=== PATIENT | female | born 1950 | race Caucasian/White ===

== ENCOUNTER → 2016-08-10 | Outpatient (CLI) | payer OTHER | LOC: BHFA 11:30 | PROVIDERS: ATTEND Internal Medicine Cardiovascular Disease | DX: R07.9 Chest pain, unspecified (principal) ==

== ENCOUNTER → 2017-02-06 | Outpatient (CLI) | payer OTHER | LOC: BMCIMAGING 14:45 | PROVIDERS: ATTEND Internal Medicine | DX: Z12.31 Encounter for screening mammogram for malignant neoplasm of breast (principal) | CPT/HCPCS: G0202 ==

== ENCOUNTER 2017-06-01 21:06 | Observation (INO) | payer OTHER ==
--- NOTE | 2017-06-01 21:22 | CPEKG ---
Heart Rate: 62 RR Interval: 968 P-R Interval: 188 QRSD Interval: 96 QT Interval: 432 QTC Interval: 439 P [place]: 15 QRS [place]: 66 T Wave [place]: 77 EKG Severity - ABNORMAL ECG - EKG Impression: SINUS ARRHYTHMIA, RATE 52-71 EKG Impression: PROBABLE LEFT ATRIAL ABNORMALITY EKG Impression: REPOL ABNRM, PROBABLE ISCHEMIA, ANT-LAT LEADS Electronically Signed By: Jamey Stafford 01-Jun-2017 22:02:59
[2017-06-01 21:33] LABS: PLATELET COUNT 209 10^3/uL (150-400)
[2017-06-01] MEDS ORDERED: ACETAMINOPHEN 325 MG TAB PO PRN (22:10)
[2017-06-01] MEDS ORDERED: ONDANSETRON DISINTEGRATING 4 MG TAB PO PRN (22:10)
[2017-06-01] MEDS ORDERED: ONDANSETRON 4 MG/2 ML VIAL IVP PRN (22:10)
--- NOTE | 2017-06-01 22:11 | EDPHY ---
H & P Stated Complaint: c/o bilat cp lasting for approx 10 mins, no sob Time Seen by Provider: 06/01/17 21:52 HPI/ROS: Chief Complaint: Chest pain HPI: 67-year-old woman with a history of coronary artery disease status post [place] and CABG in 1999. Patient has a concert this evening when she had sudden onset of tightness in the center of her chest radiating to her neck. At worst is about a 9/10. Currently is a 3/10. The EMS was called. She was given 325 mg of aspirin orally. Pain now is 3/10. Last x-ray chest pain was in the fall. Last stress test was in the last 2 years. No recent illness. No fevers or chills. No nausea or vomiting. No shortness of breath. There are no aggravating or alleviating factors. ROS: 10 point Review of Systems is negative except as noted in the HPI. PMH: Coronary artery disease Social History: No smoking, no alcohol, no recreational drug use Family History: non-contributory Physical Exam: Gen: Awake, Alert, No Distress HEENT: Nose: no rhinorrhea Eyes: PERRLA, EOMI Mouth: Moist mucosa Neck: Supple, no JVD Chest: nontender, lungs clear to auscultation Heart: S1, S2 normal, no murmur Abd: Soft, non-tender, no guarding Back: no CVA tenderness, no midline tenderness Ext: no edema, non-tender Skin: no rash Neuro: CN II-XII intact, Sensation grossly intact, Strength 5/5 in bilateral upper and lower extremities - Personal History Tetanus Vaccine Date: < 10 years - Medical/Surgical History Hx Asthma: No Hx Chronic Respiratory Disease: No Hx Diabetes: No Hx Cardiac Disease: Yes Hx Renal Disease: No Hx Cirrhosis: No Hx Alcoholism: No Hx HIV/AIDS: No Hx Splenectomy or Spleen Trauma: No Other PMH: cabg 1999 , hypertension, hyperlipidema, gerd, right acl x2, R knee replacement - Social History Smoking Status: Former smoker Constitutional: Initial Vital Signs Temperature (C) 37 C 06/01/17 21:13 Heart Rate 72 06/01/17 21:13 Respiratory Rate 14 06/01/17 21:13 Blood Pressure 173/99 H 06/01/17 21:13 O2 Sat (%) 96 06/01/17 21:13 O2 Delivery Mode Room Air Allergies/Adverse Reactions: erythromycin base [Erythromycin Base] Allergy (Unknown, Verified 06/01/17 21:19) Other-Enter Comments Penicillins Allergy (Unknown, Verified 06/01/17 21:19) Rash Home Medications: Medication Instructions Recorded Aspirin [Aspirin 81mg] 81 mg PO HS 05/15/11 Niacin ER [Niaspan] 500 mg PO HS 05/15/11 Atorvastatin Calcium [Lipitor 10 10 mg PO HS 09/07/13 mg (*)] Calcium Carbonate/Vitamin D3 1 each PO BID 09/07/13 [Calcium 500 + Vit D Caplet] Lisinopril [Zestril 5 mg (RX)] 5 mg PO HS 09/07/13 Multivitamins [Tab-A-Elizabeth] 1 each PO DAILY 09/07/13 [place]-3 Fatty Acids/Fish Oil 1 each PO DAILY 09/07/13 [[place] 3 1,000 mg Softgel] Medical Decision Making - Diagnostics EKG Interpretation: ECG time 9:15 p.m., sinus rhythm with a rate of 62, normal axis, she has significant T-wave inversions V1 through V3. These are unchanged from ECG of 2012 but are a bit more pronounced. Imaging Results: Imaging Impressions Chest X-Ray 06/01/17 21:23 Impression: Sequela of prior CABG, with no evidence of congestive heart failure. Imaging: I viewed and interpreted images myself ED Course/Re-evaluation: 67-year-old woman history of coronary artery disease with the sudden onset of chest pressure this morning. ECG shows no acute changes. Troponin is negative. Given her significant history and concerning story she will be admitted for cardiac rule out. I have discussed with Dr. Buchanan. Patient has received aspirin. Will give her nitrates here. Admitted to the PCU. - Data Points Laboratory Results: Laboratory Results 06/01/17 21:10 06/01/17 21:10 06/01/17 06/01/17 06/01/17 21:10 21:10 21:10 WBC 15.60 10^3/uL H 10^3/uL (3.80-9.50) RBC 4.51 10^6/uL 10^6/uL (4.18-5.33) Hgb 14.4 g/dL g/dL (12.6-16.3) Hct 43.0 % % (38.0-47.0) MCV 95.3 fL fL (81.5-99.8) MCH 31.9 pg pg (27.9-34.1) MCHC 33.5 g/dL g/dL (32.4-36.7) RDW 14.9 % % (11.5-15.2) Plt Count 209 10^3/uL 10^3/uL (150-400) MPV 9.5 fL fL (8.7-11.7) Neut % (Auto) 77.4 % H % (39.3-74.2) Lymph % (Auto) 13.8 % L % (15.0-45.0) [place] % (Auto) 7.9 % % (4.5-13.0) Eos % (Auto) 0.1 % L % (0.6-7.6) Baso % (Auto) 0.2 % L % (0.3-1.7) Nucleat RBC Rel Count 0.0 % % (0.0-0.2) Absolute Neuts (auto) 12.07 10^3/uL H 10^3/uL (1.70-6.50) Absolute Lymphs (auto) 2.16 10^3/uL 10^3/uL (1.00-3.00) Absolute Monos (auto) 1.24 10^3/uL H 10^3/uL (0.30-0.80) Absolute Eos (auto) 0.01 10^3/uL L 10^3/uL (0.03-0.40) Absolute Basos (auto) 0.03 10^3/uL 10^3/uL (0.02-0.10) Absolute Nucleated RBC 0.00 10^3/uL 10^3/uL (0-0.01) Immature Gran % 0.6 % % (0.0-1.1) Immature Gran # 0.09 10^3/uL 10^3/uL (0.00-0.10) D-Dimer < 0.27 ug/mLFEU ug/mLFEU (0.00-0.50) Sodium 138 mEq/L mEq/L (135-145) Potassium 4.0 mEq/L mEq/L (3.5-5.2) Chloride 99 mEq/L mEq/L (97-110) Carbon Dioxide 26 mEq/l mEq/l (22-31) Anion Gap 13 mEq/L mEq/L (8-16) BUN 19 mg/dL mg/dL (7-23) Creatinine 0.6 mg/dL mg/dL (0.6-1.0) Estimated GFR > 60 Glucose 133 mg/dL H mg/dL (70-100) Calcium 9.7 mg/dL mg/dL (8.5-10.4) Troponin I < 0.012 ng/mL ng/mL (0.000-0.034) NT-Pro-B Natriuret Pep 110 pg/mL pg/mL (0-125) Departure - Departure Disposition: [facility] Inpatient Acute Clinical Impression: Chest pain Condition: Fair Referrals: Delores Prince MD [Primary Care Provider] - As per Instructions
[2017-06-02] MEDS ORDERED: LORazepam 0.5 MG TAB PO ONE (00:12)
--- NOTE | 2017-06-02 00:56 | PDGENHP ---
History and Physical - Chief Complaint Chest pain - History of Present Illness 67 yo F w/ hx of CAD s/p CABG in 1999 presents with chest pain. Patient exercised vigorously earlier today attending a 1 hour cycling class and then hiking 4 miles. She had no chest pain during these activities. Then tonight during a concert around 8 PM she experienced an episode of sudden onset central chest pain with radiation to her neck. This lasted 15-20 minutes and she is currently chest pain free. Of note, she had a stress echo in July of 2016 that was unremarkable. History Information - Allergies/Home Medication List Allergies/Adverse Reactions: erythromycin base [Erythromycin Base] Allergy (Unknown, Verified 06/01/17 21:19) Other-Enter Comments Penicillins Allergy (Unknown, Verified 06/01/17 21:19) Rash Home Medications: Niacin ER [Niaspan] 500 mg PO HS 05/15/11 [Last Taken 05/31/17] Calcium Carbonate/Vitamin D3 [Calcium 500 + Vit D Caplet] 1 each PO BID [Last Taken 06/01/17] Lisinopril [Zestril 5 mg (RX)] 5 mg PO HS 09/07/13 [Last Taken 05/31/17] Multivitamins [Tab-A-Elizabeth] 1 each PO DAILY 09/07/13 [Last Taken 06/01/17] [place]-3 Fatty Acids/Fish Oil [[place] 3 1,000 mg Softgel] 1 each PO DAILY [Last Taken 06/01/17] Atorvastatin Calcium 80 mg PO HS 06/01/17 [Last Taken 05/31/17] Carboxymethylcellulose 1% [Refresh Celluvisc (*)] 1 drop EACHEYE PRN PRN [Last Taken 06/01/17] Herbals/Supplements -Info Only 1 ea PO DAILY 06/01/17 [Last Taken 06/01/17] I have personally reviewed and updated: medical history - Past Medical History coronary artery disease - Surgical History Reports: coronary bypass surgery - Family History Positive for: CAD, father with history of CAD younger than 55 - Social History Smoking Status: Former smoker Review of Systems Review of Systems: ROS: 10pt was reviewed & negative except for what was stated in HPI & below Physical Exam Physical Exam: Temp Pulse Resp BP Pulse Ox 36.8 C 71 16 150/96 H 94 06/01/17 23:28 06/01/17 23:28 06/01/17 23:28 06/01/17 23:28 06/01/17 23:28 Constitutional: no apparent distress, not in pain Eyes: PERRL, EOMI Ears, Nose, Mouth, Throat: moist mucous membranes, no oral mucosal ulcers Cardiovascular: regular rate and rhythym, no murmur, rub, or gallop Respiratory: no respiratory distress, clear to auscultation Gastrointestinal: normoactive bowel sounds, soft, non-tender abdomen Skin: warm, normal color Musculoskeletal: full muscle strength, no muscle tenderness Neurologic: AAOx3, CN II-XII Intact Psychiatric: interacting appropriately, not anxious Lab Data & Imaging Review 06/01/17 21:10 06/01/17 21:10 WBC 15.60 10^3/uL (3.80-9.50) H 06/01/17 21:10 RBC 4.51 10^6/uL (4.18-5.33) 06/01/17 21:10 Hgb 14.4 g/dL (12.6-16.3) 06/01/17 21:10 Hct 43.0 % (38.0-47.0) 06/01/17 21:10 MCV 95.3 fL (81.5-99.8) 06/01/17 21:10 MCH 31.9 pg (27.9-34.1) 06/01/17 21:10 MCHC 33.5 g/dL (32.4-36.7) 06/01/17 21:10 RDW 14.9 % (11.5-15.2) 06/01/17 21:10 Plt Count 209 10^3/uL (150-400) 06/01/17 21:10 MPV 9.5 fL (8.7-11.7) 06/01/17 21:10 Neut % (Auto) 77.4 % (39.3-74.2) H 06/01/17 21:10 Lymph % (Auto) 13.8 % (15.0-45.0) L 06/01/17 21:10 [place] % (Auto) 7.9 % (4.5-13.0) 06/01/17 21:10 Eos % (Auto) 0.1 % (0.6-7.6) L 06/01/17 21:10 Baso % (Auto) 0.2 % (0.3-1.7) L 06/01/17 21:10 Nucleat RBC Rel Count 0.0 % (0.0-0.2) 06/01/17 21:10 Absolute Neuts (auto) 12.07 10^3/uL (1.70-6.50) H 06/01/17 21:10 Absolute Lymphs (auto) 2.16 10^3/uL (1.00-3.00) 06/01/17 21:10 Absolute Monos (auto) 1.24 10^3/uL (0.30-0.80) H 06/01/17 21:10 Absolute Eos (auto) 0.01 10^3/uL (0.03-0.40) L 06/01/17 21:10 Absolute Basos (auto) 0.03 10^3/uL (0.02-0.10) 06/01/17 21:10 Absolute Nucleated RBC 0.00 10^3/uL (0-0.01) 06/01/17 21:10 Immature Gran % 0.6 % (0.0-1.1) 06/01/17 21:10 Immature Gran # 0.09 10^3/uL (0.00-0.10) 06/01/17 21:10 D-Dimer < 0.27 ug/mLFEU (0.00-0.50) 06/01/17 21:10 Sodium 138 mEq/L (135-145) 06/01/17 21:10 Potassium 4.0 mEq/L (3.5-5.2) 06/01/17 21:10 Chloride 99 mEq/L (97-110) 06/01/17 21:10 Carbon Dioxide 26 mEq/l (22-31) 06/01/17 21:10 Anion Gap 13 mEq/L (8-16) 06/01/17 21:10 BUN 19 mg/dL (7-23) 06/01/17 21:10 Creatinine 0.6 mg/dL (0.6-1.0) 06/01/17 21:10 Estimated GFR > 60 06/01/17 21:10 Glucose 133 mg/dL (70-100) H 06/01/17 21:10 Calcium 9.7 mg/dL (8.5-10.4) 06/01/17 21:10 Troponin I < 0.012 ng/mL (0.000-0.034) 06/01/17 21:10 NT-Pro-B Natriuret Pep 110 pg/mL (0-125) 06/01/17 21:10 Imaging Review: Imaging Impressions Chest X-Ray 06/01/17 21:23 Impression: Sequela of prior CABG, with no evidence of congestive heart failure. Assessment & Plan Assessment: 67 yo F w/ hx of CAD s/p CABG presents with chest pain. Plan: 1. Chest pain - Occurred at rest and lasted about 15-20 minutes. Patient exercised vigorously earlier in the day without symptoms. Initial work-up in the ED negative. She had a stress echo in July of 2016 with mild hypokinesis in septal region, which was consistent with prior, known disease. - Admit to PCU for observation - Monitor on telemetry, trend cardiac enzymes - Will consult cardiology regarding next steps per patient request 2. Hx CAD - S/p CABG in 1999; she has significant family hx of early CAD. She has done well since with no subsequent cardiac episodes. She is compliant with home medications. 3. Leukocytosis - WBC 15,000 on admission with unclear etiology. Patient denies any symptoms of infection. Monitor CBC. Diet - NPO pending cardiology consult Ppx - LMWH Code - Full Dispo - Admit to PCU under observation status
[2017-06-02 04:31] LABS: PLATELET COUNT 179 10^3/uL (150-400)
[2017-06-02 07:49] VITALS: O2SAT 92
[2017-06-02] MEDS ORDERED: ENOXAPARIN 40 MG/0.4 ML SYR SC SCH (09:00)
[2017-06-02 11:54] VITALS: BP 110/66; PULSE 62; RESP 17; TEMP 98.2
--- NOTE | 2017-06-02 14:11 | GDS ---
[f rep st] DISCHARGE SUMMARY DIAGNOSES: 1. Chest pain. 2. Coronary artery disease status post previous CABG. HISTORY: The patient is a 67-year-old female with coronary disease, status post CABG in 1999, claire fontaine with recurrence of chest pain. She is very active at baseline and had taken a 1-hour cycling cl ass, as well as hiked 4 miles without chest pain on the day prior to admission. She went to a [employer] that evening at 8 p.m. and, during the concert, had an episode of sudden onset central chest pain t hat radiated to her neck that lasted 20 minutes. It has not recurred. She had a negative stress ech o in July 2016. She was admitted to the hospital under observation, and serial troponins and EKGs wer e unremarkable. She was seen by Dr. Grubbs, who is data management consultant for Dr. Lazaro. He is recommending disch arge from the hospital and followup with Dr. Lazaro within 1 week for outpatient stress testing. DISCHARGE MEDICATIONS: Please see computer record for full detailed list. New medications: Nitrogl ycerin 0.4 mg sublingual q.5 minutes as needed. ADDITIONAL DISCHARGE INSTRUCTIONS: Follow up with Dr. Jamir Lazaro for outpatient stress testing within 1 week. Patient seen and examined by me on the day of discharge. /[id number]/MODL
--- NOTE | 2017-06-02 14:12 | ASMTLACE ---
LACE Length of stay for Answers: Less than 1 day current admission Acuity / Level of Answers: No Care: Did the patient have an inpatient admission? Comorbidities - select Answers: Coronary Atery Disease all that apply Previous myocardial infarction # of Emergency department Answers: 1-2 visits in the last 6 months Score: 4 Date Signed: 06/02/2017 02:12 PM Electronically Signed By:Yolie Maradiaga LCSW
[2017-06-02] MEDS ORDERED: LISINOPRIL 5 MG TAB PO SCH (21:00)
[2017-06-02] MEDS ORDERED: NIACIN ER 500 MG TAB.ER PO SCH (21:00)
--- NOTE | 2017-06-03 00:33 | GCON ---
[f rep st] CONSULTATION CARDIOLOGY CONSULTATION DATE OF CONSULTATION: 06/02/2017 REFERRING PHYSICIAN: Miladys Villasenor MD INDICATION FOR CONSULT: Chest pain and known history of coronary artery disease. HISTORY OF PRESENT ILLNESS: The patient is a pleasant 67-year-old female with a known history of coronary artery disease, status post myocardial infarction, with history of PCI followed by CABG in 1999, who was in her usual state of health yesterday. She states that she was able to do an hour-long cycling class yesterday and also went for 4-mile hike without any cardiac complaints. She states that last evening she went to a [facility] and had an acute onset of substernal chest pain that she describes as originating in her epigastrium and radiating up across her chest and up into her neck and jaw. She states that at the peak, her chest discomfort was an 8/10. She had no associated nausea, vomiting, or diaphoresis. No associated shortness of breath or dyspnea. She states these symptoms lasted for approximately 15 to 20 minutes and resolve spontaneously. She was brought to the emergency room for further evaluation. Initial ECG demonstrated normal sinus rhythm with T wave inversions in leads V1 through V4. This is essentially unchanged compared to previous ECG from May 2011. Initial troponin was unremarkable. She was admitted for observation. The patient had no further episodes of chest discomfort during hospitalization. She has remained hemodynamically stable. There have been no events on telemetry. She denies any complaints of shortness of breath, dyspnea, PND, orthopnea, or lower extremity edema. She denies any recent complaints of palpitations, dizziness, lightheadedness, near-syncope, or syncope. She has no complaints of exertional intolerance or fatigue. The patient states that she has occasionally had episodes of chest discomfort like which she experienced last evening. However, it has been several years since she has had these symptoms. Of note, she was hospitalized last July 2016 at [facility] for an episode of atypical chest discomfort. She was discharged from that hospitalization without admission. She subsequently underwent an exercise stress echocardiogram in July 2016 at [facility] which was low risk with no evidence of ischemic changes. She remains on excellent standard of care medical therapy with atorvastatin 80 mg daily, aspirin 81 mg daily, and lisinopril. She is not on beta colleen secondary to intolerance to beta blockers. She is also on Niaspan 500 mg daily. We did discuss at length trial data suggesting no added benefit of niacin therapy in the setting of long-term statin therapy. Currently, at the time of my exam, she is resting comfortably and in no apparent distress. PAST MEDICAL HISTORY: Coronary artery disease, status post CABG in 1999. 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 No other significant past medical history. MEDICATIONS ON ADMISSION: Niaspan 500 mg daily, lisinopril 5 mg daily, fish oil 3000 mg daily, atorvastatin 80 mg daily, herbal supplements, calcium/vitamin -D, multivitamin. ALLERGIES TO MEDICATIONS: Erythromycin and penicillins. FAMILY HISTORY: Notable for coronary artery disease in both her maternal grandfather, who from an acute ME at the age of 48, and her paternal grandfather, who of a myocardial infarction at the age of 61. Her mother is still alive at 93. Her father from complications from congestive heart failure at the age of 87. SOCIAL HISTORY: The patient was approximately 2 years ago. She has 2 adult children. She is lifelong nonsmoker. She exercises regularly. PHYSICAL EXAMINATION: VITAL SIGNS: Blood pressure 110/66, heart rate 62, respiratory rate 17, oxygen saturation 92% on room air, temperature 36.8. GENERAL APPEARANCE: She is awake, alert, oriented, appropriate, in no apparent distress. NECK: There is no evidence of JVP or carotid bruits. LUNGS: Clear to auscultation bilaterally. CARDIAC: S1, S2. Regular rate and rhythm. No murmurs, rubs, or gallops. ABDOMEN: Soft, nontender, nondistended. EXTREMITIES: There is no evidence of cyanosis, clubbing, or edema. DATA REVIEWED: ECG demonstrates sinus rhythm with T wave inversions in V1 through V4. This is essentially unchanged compared to previous ECG in May 2011. Chest x-ray demonstrates no evidence of congestive heart failure, otherwise unremarkable. LAB WORK: White blood cell count 12.25, hemoglobin 13.3, hematocrit 39.4, platelet count 179. Sodium 141, potassium 4.1, chloride 105, bicarb 25, BUN 15 , creatinine 0.6, glucose 82, magnesium 2.2. Troponin less than 0.012 x2. NT- proBNP normal at 110. IMPRESSION: 1. Atypical chest discomfort. This may represent possible vasospasm. She does have a p.r.n. prescription for Norvasc as well as nitroglycerin, which she did not use last night. 2. History of coronary artery disease, status post coronary artery bypass graft in 2002. 3. History of acute myocardial infarction with percutaneous coronary intervention in 1999. PLAN: 1. The patient is stable for discharge home. 2. Recommend she remain on her current medical therapy. 3. Will refill her prescription for sublingual nitroglycerin. 4. Recommend outpatient followup with exercise treadmill stress test to be performed at [facility] in the next 1 to 3 days. I have answered all of her questions. I have discussed plan of care with Dr. Villasenor, her admitting physician. 45 min spent coordinating care. /[id number]/MODL MTDD
[2017-06-03] MEDS ORDERED: ATORVASTATIN CALCIUM 40 MG TAB PO SCH (21:00)
== END 2017-06-02 14:42 | disposition home or self-care (01) ==
LOC: EDUNIT# → F2W 22:54
PROVIDERS: ADMIT Student in an Organized Health Care Education/Training Program; ATTEND Student in an Organized Health Care Education/Training Program
DX: R07.89 Other chest pain (principal); I25.10 Atherosclerotic heart disease of native coronary artery without angina pectoris; Z95.1 Presence of aortocoronary bypass graft; I25.2 Old myocardial infarction; E78.5 Hyperlipidemia, unspecified; I10 Essential (primary) hypertension; K21.9 Gastro-esophageal reflux disease without esophagitis; Z96.651 Presence of right artificial knee joint; Z87.891 Personal history of nicotine dependence; Z82.49 Family history of ischemic heart disease and other diseases of the circulatory system
CPT/HCPCS: 71046; 93005; G0378

== ENCOUNTER → 2017-07-15 | Outpatient (CLI) | payer OTHER | LOC: BMCIMAGING 17:12 | PROVIDERS: ATTEND Family Medicine | DX: M71.22 Synovial cyst of popliteal space [Baker], left knee (principal) ==

== ENCOUNTER → 2018-04-04 | Outpatient (CLI) | payer OTHER | LOC: FIMAGING 11:47 | PROVIDERS: ATTEND Internal Medicine | DX: Z12.31 Encounter for screening mammogram for malignant neoplasm of breast (principal) ==